=== PATIENT | female | born 1980 | race African-American/Black ===

== ENCOUNTER 2018-06-23 14:37 | Emergency (ER) | payer MEDICAID ==
[~2018-06-23] VITALS: Ht 165.1 cm; Wt 55.0 kg
[2018-06-23] MEDS ORDERED: SODIUM CHLORIDE 0.9% 1,000 ML IV ONE (15:15)
[2018-06-23 15:27] LABS: BASOPHILS % 1.6 % (0.0-2.0); EOSINOPHILS % 2.1 % (0.0-5.0); HEMATOCRIT. 34.6 % (36.0-48.0); HEMOGLOBIN. 10.3 g/dL (12.0-16.0); LYMPHOCYTES % 29.4 % (20.0-50.0); MEAN CORPUSCULAR HEMOGLOBIN 19.4 pg (28.0-32.0); MEAN PLATELET VOLUME 6.3 fl (7.4-10.4); MONOCYTES % 8.2 % (2.0-8.0); NEUTROPHILS % 58.7 % (40.0-76.0); PLATELET 328 x1000/uL (130-400); RED BLOOD CELL COUNT 5.32 mill/uL (4.2-5.4); RED CELL DISTRIBUTION WIDTH 22.9 % (11.6-14.6)
[2018-06-23 15:31] LABS: CHLORIDE 108 mEq/L (98-107)
[2018-06-23 15:35] LABS: ETHANOL BLOOD < 10 mg/dL
[2018-06-23 15:54] LABS: PLATELET ESTIMATE NORMAL
[2018-06-23] MEDS ORDERED: HALOPERIDOL LACTATE 5MG/ML VIAL IM ONE (16:45)
[2018-06-23] MEDS ORDERED: LORAZEPAM 2MG/ML CPJ IV ONE (16:45)
[2018-06-23 18:35] LABS: CLARITY URINE CLOUDY (CLEAR); COLOR URINE YELLOW (YELLOW); KETONES URINE TRACE (NEGATIVE); LEUKOCYTE ESTERASE URINE NEGATIVE (NEGATIVE); NITRITE URINE NEGATIVE (NEGATIVE); OCCULT BLOOD URINE NEGATIVE (NEGATIVE); PH URINE 5.5 (4.5-8.0); PROTEIN URINE NEGATIVE (NEGATIVE); SPECIFIC GRAVITY URINE 1.024 (1.005-1.030)
[2018-06-23 18:46] LABS: *AMPHETAMINES SCREEN URINE NEGATIVE (NEGATIVE); *BARBITURATES SCREEN URINE NEGATIVE (NEGATIVE); METHADONE URINE SCREEN NEGATIVE (NEGATIVE); OPIATES URINE SCREEN NEGATIVE (NEGATIVE)
[2018-06-23 19:39] LABS: *BENZODIAZEPINES SCREEN URINE PRESUMTIVE POSITIVE (NEGATIVE); *COCAINE SCREEN URINE PRESUMTIVE POSITIVE (NEGATIVE); CANNABINOID URINE SCREEN PRESUMTIVE POSITIVE (NEGATIVE); PHENCYCLIDINE URINE SCREEN PRESUMTIVE POSITIVE (NEGATIVE)
[2018-06-24 02:19] VITALS: BP 119/61
== END 2018-06-24 02:24 | disposition home or self-care (01) ==
LOC: ER 14:37 → EDBD 14:37 → ER 06-24 02:24
DX: F16.129 Hallucinogen abuse with intoxication, unspecified (principal); Z78.1 Physical restraint status
CPT/HCPCS: 36415; 70450; 71045; 80053; 80305; 80320; 81003; 82140; 83690; 85025; 85610; 96361; 96372; 96374; 99284; J1630; J2060; J7030; Z7610; G0480

== ENCOUNTER 2018-06-24 04:26 | Emergency (ER) | payer MEDICAID ==
[~2018-06-24] VITALS: Ht 152.4 cm; Wt 50.0 kg
[2018-06-24 04:59] VITALS: BP 132/80
== END 2018-06-24 06:56 | disposition left against medical advice (07) ==
LOC: ER 04:26
DX: Z53.21 Procedure and treatment not carried out due to patient leaving prior to being seen by health care provider (principal)